=== PATIENT | female | born 1990 | race Caucasian/White ===

== ENCOUNTER 2021-08-08 16:31 | Emergency (ER) | payer OTHER ==
[2021-08-08 16:40] VITALS: BP 115/80; PULSE 100; TEMP 98; BMI 29.2
== END 2021-08-08 18:53 | disposition home or self-care (01) ==
LOC: JER 16:31
DX: O26.892 Other specified pregnancy related conditions, second trimester (principal); R10.9 Unspecified abdominal pain; V49.40XA Driver injured in collision with unspecified motor vehicles in traffic accident, initial encounter; Z3A.16 16 weeks gestation of pregnancy
CPT/HCPCS: 76815-TC; 99284-25

== ENCOUNTER 2022-01-28 02:30 | Inpatient (IN) | payer OTHER ==
[2022-01-28] MEDS ORDERED: ELECTROLYTE-148 SOLN 1,000 ML IV SCH (03:00)
[2022-01-28 04:17] VITALS: BMI 27.6
[2022-01-28 04:44] LABS: BASO % 0.2 % (0-2.0); EOS % 0.9 % (0-4.5); HEMATOCRIT 33.2 % (32.4-45.2); HEMOGLOBIN 11.3 GM/dL (10.7-15.3); LYMPH % 13.8 % (8-40); MCH 28.7 pg (25.7-33.7); MCHC 34.1 g/dl (32.0-36.0); MEAN CELL VOLUME 84.2 fl (80-96); MEAN PLT VOLUME 10.5 fl (7.5-11.1); MONO % 6.3 % (3.8-10.2); NEUT % 78.8 % (42.8-82.8); PLATELET COUNT 153 10^3/uL (134-434); RBC 3.94 M/mm3 (3.60-5.2); RDW 15.1 % (11.6-15.6)
[2022-01-28 05:00] LABS: INR 0.94 (0.83-1.09); PROTHROMBIN TIME (PATIENT) 10.8 SEC (9.7-13.0)
[2022-01-28 05:03] LABS: ACTIVATED PTT 24.4 SECONDS (25.2-36.5)
[2022-01-28 05:08] LABS: BLOOD UREA NITROGEN 8.9 mg/dL (7-18); CALCIUM 8.8 mg/dL (8.5-10.1)
[2022-01-28 05:09] LABS: URIC ACID 4.5 mg/dL (2.6-7.2)
[2022-01-28 05:10] LABS: CREATININE 0.5 mg/dL (0.55-1.3)
[2022-01-28 06:39] LABS: HIV INTERPRETATION NEGATIVE (NEGATIVE)
[2022-01-28] MEDS ORDERED: OXYTOCIN 30 UNITS in 0.9% NS 30 UNIT/500 ML INFUS.BAG IVPB ONE (11:45)
[2022-01-28] MEDS: OXYTOCIN 20 UNITS in 0.9% NS 20 UNIT/1,000 ML INFUS.BAG IV SCH ×2 (11:45→16:50)
[2022-01-28] MEDS ORDERED: OXYTOCIN 20 UNITS in 0.9% NS 20 UNIT/1,000 ML INFUS.BAG IV ONE (14:23)
[2022-01-28] MEDS ORDERED: MISOPROSTOL 200 MCG TABLET ONE (16:49)
[2022-01-28] MEDS ORDERED: FENTANYL CITRATE/PF 50 MCG/ML VIAL ONE (17:02)
[2022-01-28] MEDS ORDERED: MIDAZOLAM HCL 2 MG/2 ML SINGLE DOSE VIAL ONE (17:02)
[2022-01-28] MEDS ORDERED: KETAMINE HCL 500 MG/10 ML VIAL ONE (17:03)
[2022-01-28] MEDS ORDERED: ceFAZolin SODIUM 1 GM VIAL ONE ×3 (17:20→17:21)
[2022-01-28 17:48] LABS: HEMATOCRIT 30.7 % (32.4-45.2); HEMOGLOBIN 10.4 GM/dL (10.7-15.3); MCH 28.7 pg (25.7-33.7); MCHC 33.7 g/dl (32.0-36.0); MEAN CELL VOLUME 85.2 fl (80-96); MEAN PLT VOLUME 10.3 fl (7.5-11.1); PLATELET COUNT 184 10^3/uL (134-434); RDW 14.6 % (11.6-15.6); WHITE BLOOD COUNT 19.9 K/mm3 (4.0-10.0)
[2022-01-28 17:50] LABS: INR 1.09 (0.83-1.09); PROTHROMBIN TIME (PATIENT) 12.5 SEC (9.7-13.0)
[2022-01-28 17:53] LABS: ACTIVATED PTT 23.9 SECONDS (25.2-36.5)
[2022-01-28 18:09] LABS: ALBUMIN 2.8 g/dl (3.4-5.0); BLOOD UREA NITROGEN 7.5 mg/dL (7-18); CALCIUM 8.7 mg/dL (8.5-10.1)
[2022-01-28 18:11] LABS: CREATININE 0.7 mg/dL (0.55-1.3)
[2022-01-28] MEDS ORDERED: WITCH HAZEL 50% (TUCKS) 40 PAD/JAR PAD TP PRN (18:13)
[2022-01-28] MEDS ORDERED: BENZOCAINE 20% 57 GM BOTTLE TP PRN (18:13)
[2022-01-28] MEDS ORDERED: oxyCODONE HCL 5 MG TABLET PO PRN (18:13)
[2022-01-28] MEDS ORDERED: BENZOCAINE 28 GM HEMORRHOIDAL OINTMENT TP PRN (18:13)
[2022-01-28] MEDS ORDERED: BISACODYL 10 MG SUPP.RECT RC PRN (18:13)
[2022-01-28 18:14] LABS: BILIRUBIN,TOTAL 0.5 mg/dL (0.2-1); TOT PROT 5.7 g/dl (6.4-8.2)
[2022-01-28] MEDS ORDERED: ceFAZolin 2 GRAM PREMIX BAG IVPB ONE (18:14)
[2022-01-28 18:16] LABS: ANISOCYTOSIS 0; MACROCYTOSIS 0; PLATELET ESTIMATE NORMAL
[2022-01-28] MEDS ORDERED: OXYTOCIN 30 UNITS in 0.9% NS 30 UNIT/500 ML INFUS.BAG IVPB SCH (18:30)
[2022-01-28] MEDS ORDERED: MISOPROSTOL 200 MCG TABLET PO ONE (18:45)
[2022-01-28] MEDS ORDERED: ACETAMINOPHEN 325 MG TABLET (FP) ONE (20:38)
[2022-01-28] MEDS: ACETAMINOPHEN 325 MG TABLET (FP) PO PRN (20:39)
[2022-01-28 21:41] LABS: BASO % 0.6 % (0-2.0); HEMATOCRIT 26.2 % (32.4-45.2); HEMOGLOBIN 8.8 GM/dL (10.7-15.3); LYMPH % 6.1 % (8-40); MCH 28.5 pg (25.7-33.7); MCHC 33.5 g/dl (32.0-36.0); MEAN PLT VOLUME 11.1 fl (7.5-11.1); MONO % 4.6 % (3.8-10.2); NEUT % 88.7 % (42.8-82.8); PLATELET COUNT 116 10^3/uL (134-434); RBC 3.08 M/mm3 (3.60-5.2); RDW 14.8 % (11.6-15.6); WHITE BLOOD COUNT 18.5 K/mm3 (4.0-10.0)
[2022-01-29] MEDS: IBUPROFEN 600 MG TABLET (FP) PO PRN ×3 (05:35→14:38)
[2022-01-29 09:25] LABS: BASO % 0.1 % (0-2.0); EOS % 0.5 % (0-4.5); HEMATOCRIT 26.3 % (32.4-45.2); LYMPH % 15.4 % (8-40); MCH 28.8 pg (25.7-33.7); MCHC 34.2 g/dl (32.0-36.0); MEAN CELL VOLUME 84.2 fl (80-96); MEAN PLT VOLUME 9.7 fl (7.5-11.1); MONO % 6.4 % (3.8-10.2); NEUT % 77.6 % (42.8-82.8); PLATELET COUNT 118 10^3/uL (134-434); RBC 3.13 M/mm3 (3.60-5.2); RDW 14.5 % (11.6-15.6); WHITE BLOOD COUNT 12.9 K/mm3 (4.0-10.0)
[2022-01-29] MEDS: PRENATAL VITAMINS W/ FOLIC ACID TABLET (FP) PO SCH (09:33)
[2022-01-29 15:10] VITALS: RESP 18
[2022-01-29] MEDS ORDERED: SENNOSIDES/DOCUSATE COMBO (SENNA PLUS) TABLET (UD) PO PRN (22:00)
[2022-01-29] MEDS: ACETAMINOPHEN 325 MG TABLET (FP) PO PRN (23:01)
[2022-01-30] MEDS: ACETAMINOPHEN 325 MG TABLET (FP) PO PRN (06:10)
[2022-01-30] MEDS ORDERED: diphenhydrAMINE HCL 25 MG CAPSULE (FP) PO ONE (10:00)
[2022-01-30] MEDS: PRENATAL VITAMINS W/ FOLIC ACID TABLET (FP) PO SCH (10:04)
[2022-01-30 10:40] VITALS: BP 146/87; PULSE 93; TEMP 98.1
== END 2022-01-30 13:40 | disposition home or self-care (01) | DRG 560 ==
LOC: JDEL 02:30 → JLDR 02:56 → J3W 22:58
PROVIDERS: ADMIT Specialist; ATTEND Specialist
PROC: 10E0XZZ Delivery of Products of Conception, External Approach (ICD-10-PCS; principal; 2022-01-28)
PROC: 0UQG7ZZ Repair Vagina, Via Natural or Artificial Opening (ICD-10-PCS; 2022-01-28)
PROC: 0W8NXZZ Division of Female Perineum, External Approach (ICD-10-PCS; 2022-01-28)
PROC: 10907ZC Drainage of Amniotic Fluid, Therapeutic from Products of Conception, Via Natural or Artificial Opening (ICD-10-PCS; 2022-01-28)
DX: O14.94 Unspecified pre-eclampsia, complicating childbirth (principal); O71.4 Obstetric high vaginal laceration alone; O77.0 Labor and delivery complicated by meconium in amniotic fluid; Z3A.40 40 weeks gestation of pregnancy; Z37.0 Single live birth
CPT/HCPCS: 36415; 36430; 59409; 80048; 80053; 82570; 82977; 83010; 84156; 84450; 84460; 84550; 85025; 85045; 85384; 85610; 85730; 86780; 86850; 86900; 86901; 86922; 87389; C9803-CS; P9058; U0003; U0005

== ENCOUNTER 2022-02-07 01:52 | Emergency (ER) | payer OTHER ==
[2022-02-07 02:33] VITALS: BP 125/81; PULSE 93; RESP 18; TEMP 97.9; BMI 30.1
[2022-02-07 05:09] LABS: BASO % 0.5 % (0-2.0); EOS % 1.3 % (0-4.5); HEMATOCRIT 34.9 % (32.4-45.2); HEMOGLOBIN 11.6 GM/dL (10.7-15.3); LYMPH % 20.1 % (8-40); MCH 28.2 pg (25.7-33.7); MCHC 33.2 g/dl (32.0-36.0); MEAN CELL VOLUME 85.1 fl (80-96); MEAN PLT VOLUME 8.1 fl (7.5-11.1); MONO % 4.9 % (3.8-10.2); NEUT % 73.2 % (42.8-82.8); PLATELET COUNT 361 10^3/uL (134-434); WHITE BLOOD COUNT 9.9 K/mm3 (4.0-10.0)
== END 2022-02-07 05:39 | disposition home or self-care (01) ==
LOC: JER 01:52
DX: N93.8 Other specified abnormal uterine and vaginal bleeding (principal)
CPT/HCPCS: 36415; 85025; 99283-25